=== PATIENT | male | born 1930 | race Caucasian/White ===

== ENCOUNTER → 2017-03-07 | Outpatient (CLI) | payer OTHER, BC | LOC: BHLMT 11:00 | PROVIDERS: ATTEND Internal Medicine Interventional Cardiology | DX: I34.8 Other nonrheumatic mitral valve disorders (principal) | CPT/HCPCS: 93225-PO; 93226-PO ==

== ENCOUNTER → 2017-03-08 | Outpatient (CLI) | payer OTHER, BC | LOC: BHLMT 11:30 | PROVIDERS: ATTEND Internal Medicine Cardiovascular Disease | DX: R94.31 Abnormal electrocardiogram [ECG] [EKG] (principal) | CPT/HCPCS: 93306-PO ==

== ENCOUNTER → 2017-03-16 | Outpatient (CLI) | payer OTHER, BC | LOC: BHFA 13:30 | PROVIDERS: ATTEND Internal Medicine Cardiovascular Disease | DX: R94.31 Abnormal electrocardiogram [ECG] [EKG] (principal) | CPT/HCPCS: 78452; 93017; A9500; J2785 ==

== ENCOUNTER → 2017-03-28 | Outpatient (CLI) | payer OTHER, BC | LOC: FIMAGING 13:17 | PROVIDERS: ATTEND Internal Medicine Cardiovascular Disease | DX: K44.9 Diaphragmatic hernia without obstruction or gangrene (principal); R91.8 Other nonspecific abnormal finding of lung field; I25.10 Atherosclerotic heart disease of native coronary artery without angina pectoris; I70.0 Atherosclerosis of aorta; M45.4 Ankylosing spondylitis of thoracic region; M51.34 Other intervertebral disc degeneration, thoracic region ==

== ENCOUNTER → 2018-07-10 | Outpatient (CLI) | payer OTHER, BC | LOC: BMCIMAGING 09:36 | PROVIDERS: ATTEND Internal Medicine Rheumatology | DX: M06.09 Rheumatoid arthritis without rheumatoid factor, multiple sites (principal) ==